=== PATIENT | female | born 1950 | race Caucasian/White ===

== ENCOUNTER 2018-05-05 21:19 | Emergency (ER) | payer OTHER ==
[~2018-05-05] VITALS: Ht 157.5 cm; Wt 62.6 kg
[2018-05-05] MEDS ORDERED: LIPITOR 20 MG T20 M1 (21:32)
[2018-05-05] MEDS ORDERED: COZAAR 25 MG TA25 M1 (21:32)
[2018-05-05] MEDS ORDERED: METFORMIN HCL500 M2 (21:33)
[2018-05-05] MEDS ORDERED: MORPHINE SULFAT15 M3 PO (22:08)
[2018-05-05 22:44] VITALS: BP 162/76
== END 2018-05-05 22:45 | disposition home or self-care (01) ==
LOC: ER 21:19
DX: S62.636A Displaced fracture of distal phalanx of right little finger, initial encounter for closed fracture (principal); Z91.041 Radiographic dye allergy status; Z88.4 Allergy status to anesthetic agent; W23.1XXA Caught, crushed, jammed, or pinched between stationary objects, initial encounter; Y92.89 Other specified places as the place of occurrence of the external cause; Y93.89 Activity, other specified; Y99.8 Other external cause status